=== PATIENT | female | born 1945 | race Caucasian/White ===

== ENCOUNTER 2017-03-22 12:53 | Outpatient (CLI) | payer MEDICARE, OTHER ==
--- NOTE | 2017-03-22 15:10 | RAD ---
TWO VIEW CHEST: History: Dyspnea. Comparison: 05-25-16 FINDINGS: Heart is mildly enlarged. Vascular markings upper normal. There are increased interstitial markings n oted today in the right midlung field when compared to the prior study. This is suspicious for an acu te inflammatory process which appears primarily interstitial. Recommend short term follow up. Lungs otherwise appear clear and unchanged. Degenerative spine changes are noted. IMPRESSION: 1. Evidence of new focal interstitial infiltrative changes in the right lung field when compared to t he study. POS: [facility]
== END 2017-03-22 12:54 | disposition home or self-care (01) ==
LOC: RAD 12:53
PROVIDERS: ATTEND Internal Medicine Critical Care Medicine
DX: R06.00 Dyspnea, unspecified (principal); R91.8 Other nonspecific abnormal finding of lung field
CPT/HCPCS: 71020

== ENCOUNTER 2017-03-30 12:15 | Outpatient (CLI) | payer MEDICARE, OTHER | END 2017-03-30 12:16 | disposition home or self-care (01) | LOC: BICMAMMO 12:15 | PROVIDERS: ATTEND Family Medicine | DX: Z12.31 Encounter for screening mammogram for malignant neoplasm of breast (principal) | CPT/HCPCS: 77063; G0202; 77067 ==

== ENCOUNTER 2017-04-30 10:40 | Outpatient (CLI) | payer MEDICARE, OTHER ==
--- NOTE | 2017-05-03 12:33 | RAD ---
MODIFIED BARIUM SWALLOW WITH SPEECH THERAPIST: 04/30/2017 HISTORY: A 71-year-old female with dysphagia, unspecified (R12.10); paralysis of vocal cords and larynx; and g astroesophageal reflux disease without esophagitis (K21.9). FINDINGS: There is ACDF hardware at C3-C4-C5. The jaws are edentulous. Laryngeal elevation, hyoid protraction , and epiglottic inversion are satisfactory. Some residue in the vallecula and, to a lesser degree, piriform sinuses, with partial clearing upon repeat swallows. Minimal penetration with thin liquids. No aspiration. The ACDF hardware does not significantly displace the hypopharynx, and does not bj ear to significantly contribute to dysphagia. See complete detailed report by speech therapist. IMPRESSION: Mild dysphagia, as described above. POS: [facility]
== END 2017-04-30 10:41 | disposition home or self-care (01) ==
PROVIDERS: ATTEND Otolaryngology Plastic Surgery within the Head & Neck
DX: I69.191 Dysphagia following nontraumatic intracerebral hemorrhage (principal); R13.10 Dysphagia, unspecified; J38.00 Paralysis of vocal cords and larynx, unspecified; K21.9 Gastro-esophageal reflux disease without esophagitis
CPT/HCPCS: 74220; G8996-GN-CJ; G8997-GN-CI

== ENCOUNTER 2017-05-04 13:05 | Outpatient (CLI) | payer MEDICARE, OTHER ==
--- NOTE | 2017-05-04 13:43 | RAD ---
TWO VIEWS CHEST: History: Dyspnea. Date: 05-04-17 Comparison: 03-22-17 FINDINGS/IMPRESSION: The lungs are well aerated. No evidence of active intrathoracic disease is seen. No evidence of effus ions, pneumonia, or pneumothorax seen. Areas of patchy airspace opacity noted on the previous exam on the right upper lobe appear to have re solved. POS: [facility]
== END 2017-05-04 13:06 | disposition home or self-care (01) ==
LOC: RAD 13:05
PROVIDERS: ATTEND Internal Medicine Critical Care Medicine
DX: R06.00 Dyspnea, unspecified (principal)
CPT/HCPCS: 71046

== ENCOUNTER 2017-05-21 15:49 | Outpatient (CLI) | payer MEDICARE, OTHER ==
--- NOTE | 2017-05-21 16:08 | RAD ---
PA AND LATERAL VIEWS CHEST: HISTORY: Pneumonia, cough, fever, flu-like symptoms. FINDINGS: Comparison is made with the exam of 05/04/17. The heart size is normal. The lungs are expanded without focal areas of consolidation, pneumothorax, or pleural effusions. There are degenerative changes in the spine. IMPRESSION: No acute process. POS: [facility]
== END 2017-05-21 15:50 | disposition home or self-care (01) ==
LOC: SCSRAD 15:49
PROVIDERS: ATTEND Family Medicine
DX: J18.9 Pneumonia, unspecified organism (principal)
CPT/HCPCS: 71046

== ENCOUNTER 2017-11-24 11:20 | Outpatient (CLI) | payer MEDICARE, OTHER | END 2017-11-24 11:21 | disposition home or self-care (01) | LOC: BICRAD 11:20 | DX: M54.2 Cervicalgia (principal); M47.892 Other spondylosis, cervical region; Z98.890 Other specified postprocedural states | CPT/HCPCS: 72050 ==

== ENCOUNTER 2018-03-31 11:13 | Outpatient (CLI) | payer MEDICARE, OTHER | END 2018-03-31 11:14 | disposition home or self-care (01) | LOC: BICMAMMO 11:13 | PROVIDERS: ATTEND Family Medicine | DX: Z12.31 Encounter for screening mammogram for malignant neoplasm of breast (principal) | CPT/HCPCS: 77063; 77067 ==

== ENCOUNTER 2018-10-21 13:27 | Outpatient (CLI) | payer MEDICARE, OTHER ==
--- NOTE | 2018-10-21 16:18 | ULT ---
ULTRASOUND WITH DOPPLER DUPLEX VENOUS LOWER EXTREMITY RIGHT: 10/21/18 HISTORY: 73-year-old female with edema of right lower extremity. TECHNIQUE: Color flow Doppler, spectral waveform analysis of pulsed Doppler, and alvarado-scale imaging with phi seamus and augmentation, were used to evaluate the right common femoral, femoral, popliteal, posterior tibial, and superficial femoral, veins; and the proximal portions of the profunda femoral and greater saphenous, veins. FINDINGS: There is normal compressibility, demonstration of blood flow by color Doppler and pulsed Doppler, and response to augmentation, in all interrogated veins. There is soft tissue edema in the distal portio n of the right leg. IMPRESSION: 1. No deep vein thrombosis in the right lower extremity. 2. Edema in the right distal leg. jn [] POS: [facility]
== END 2018-10-21 13:28 | disposition home or self-care (01) ==
LOC: ULT 13:27
PROVIDERS: ATTEND Family Medicine
DX: M79.89 Other specified soft tissue disorders (principal); R60.0 Localized edema
CPT/HCPCS: 36415; 80053

== ENCOUNTER 2019-04-24 10:27 | Outpatient (CLI) | payer MEDICARE, OTHER ==
--- NOTE | 2019-04-24 14:05 | MMO ---
Bilateral MAMMO Bilat Screen [facility]. CLINICAL HISTORY: Patient is 73 years old and is seen for screening. The patient has no family history of breast cancer. The patient has no personal history of cancer. The patient has a history of right Excisional Biopsy in 1988 - benign. VIEWS: The views performed were: bilateral craniocaudal with tomosynthesis and bilateral mediolateral oblique with tomosynthesis. FILMS COMPARED: The present examination has been compared to prior imaging studies performed at [facility] on 03/30/2017 and 03/31/2018, and at [facility] on 02/19/2015 and 03/11/2016. This study has been interpreted with the assistance of computer-aided detection. MAMMOGRAM FINDINGS: The breasts are almost entirely fat. There are no suspicious masses, suspicious calcifications, or new areas of architectural distortion. IMPRESSION: THERE IS NO MAMMOGRAPHIC EVIDENCE OF MALIGNANCY. A ROUTINE FOLLOW-UP MAMMOGRAM IN 1 YEAR IS RECOMMENDED. THE RESULTS OF THIS EXAM WERE SENT TO THE PATIENT. ACR BI-RADS Category 1 - Negative MAMMOGRAPHY NOTE: 1. A negative mammogram report should not delay a biopsy if a dominant of clinically suspicious mass is present. 2. Approximately 10% to 15% of breast cancers are not detected by mammography. 3. Adenosis and dense breasts may obscure an underlying neoplasm. Reported by: RAVEN CARDENAS MD Electonically Signed: [id number]
== END 2019-04-24 10:28 | disposition home or self-care (01) ==
LOC: BICMAMMO 10:27
PROVIDERS: ATTEND Family Medicine
DX: Z12.31 Encounter for screening mammogram for malignant neoplasm of breast (principal); Z91.89 Other specified personal risk factors, not elsewhere classified
CPT/HCPCS: 77063; 77067

== ENCOUNTER 2019-12-29 14:28 | Outpatient (CLI) | payer MEDICARE, OTHER ==
--- NOTE | 2019-12-29 14:51 | SJPRAD ---
PA AND LATERAL VIEWS OF CHEST HISTORY: Shortness of breath COMPARISON: 05/21/2017 FINDINGS: The heart size borderline. The aorta is tortuous. The lungs are expanded without lobar cons olidation, pneumothoraces, elizabeth pulmonary edema or pleural effusions. There are degenerative changes in the spine. IMPRESSION: No acute process
== END 2019-12-29 14:29 | disposition home or self-care (01) ==
LOC: SCSRAD 14:28
PROVIDERS: ATTEND Physician Assistant
DX: R06.02 Shortness of breath (principal)
CPT/HCPCS: 87635; U0003

== ENCOUNTER 2020-10-10 12:58 | Outpatient (CLI) | payer MEDICARE, OTHER | END 2020-10-10 12:59 | disposition home or self-care (01) | LOC: BICMAMMO 12:58 | PROVIDERS: ATTEND Family Medicine | DX: Z12.31 Encounter for screening mammogram for malignant neoplasm of breast (principal); M79.671 Pain in right foot | CPT/HCPCS: 77063; 77067 ==

== ENCOUNTER 2020-11-29 12:11 | Outpatient (CLI) | payer MEDICARE, OTHER ==
[2020-11-29 16:34] LABS: Bilirubin Negative (Negative); Blood, Urine Negative (Negative); Clarity Turbid (Clear); Glucose, Urine (Dipstick) Normal (Negative); Ketone, Urine Negative (Negative); Leukocyte 250 Leu/uL (Negative); Nitrite 2+ (Negative); Protein, Urine (Dipstick) Negative (Neg-Trace); RBC/HPF 0-3 HPF (0-3); Squamous Epithelial 0-3 HPF (0-3); Urobilinogen Normal mg/dL (Less than 2)
[2020-11-29 16:36] LABS: Bacteria/HPF 1+ HPF (None Seen)
== END 2020-11-29 12:12 | disposition home or self-care (01) ==
LOC: SCSRAD 12:11
PROVIDERS: ATTEND Family Medicine
DX: M54.6 Pain in thoracic spine (principal); R30.0 Dysuria; M47.814 Spondylosis without myelopathy or radiculopathy, thoracic region
CPT/HCPCS: 72072; 81001; 87077; 87086; 87186

== ENCOUNTER 2021-05-02 14:47 | Outpatient (CLI) | payer MEDICARE, OTHER | END 2021-05-02 14:48 | disposition home or self-care (01) | LOC: RAD 14:47 | PROVIDERS: ATTEND Family Medicine | DX: M25.531 Pain in right wrist (principal); S52.501A Unspecified fracture of the lower end of right radius, initial encounter for closed fracture; S52.601A Unspecified fracture of lower end of right ulna, initial encounter for closed fracture ==

== ENCOUNTER 2021-11-20 14:27 | Outpatient (CLI) | payer MEDICARE, OTHER ==
[~2021-11-20 14:27] MED LIST: Iopamidol 370 76% 100 ML VIAL ONE
== END 2021-11-20 14:28 | disposition home or self-care (01) ==
LOC: BICCT 14:27
PROVIDERS: ATTEND Internal Medicine Cardiovascular Disease
DX: D49.89 Neoplasm of unspecified behavior of other specified sites (principal); J43.2 Centrilobular emphysema; I26.99 Other pulmonary embolism without acute cor pulmonale; J98.4 Other disorders of lung; D17.4 Benign lipomatous neoplasm of intrathoracic organs
CPT/HCPCS: 71275; 82565; Q9967

== ENCOUNTER 2021-12-22 14:00 | Inpatient (IN) | payer MEDICARE, OTHER ==
[2021-12-22 15:35] LABS: Hemoglobin 12.1 g/dL (12.0-15.5); Mean Corpuscular Hemoglobin 32.1 pg (27.0-33.0); Mean Corpuscular Volume 100.3 fl (81.6-98.3); Platelet Count 255 10x3/uL (150-450); RBC Distribution Width 13.4 % (11.5-14.5); Red Blood Cell (RBC) Count 3.77 10x6/uL (3.90-5.03); White Blood Cell (WBC) Count 4.5 10x3/uL (3.5-10.5)
[2021-12-22 16:05] LABS: Anion Gap 13 mmol/L (10-20); BUN (Urea Nitrogen) 16 mg/dL (9.8-20.1); Calc. Creatinine Clearance 0 mL/min (70-130); Calcium 9.5 mg/dL (7.8-10.44); Carbon Dioxide 31 mmol/L (23-31); Chloride 104 mmol/L (98-107); Estimated GFR 68; Glucose 88 mg/dL (83-110); Sodium 143 mmol/L (136-145)
[2021-12-25] MEDS ORDERED: Heparin 5,000 UNITS/ML VIAL ONE (10:17)
[2021-12-25] MEDS ORDERED: Dexamethasone 4 mg/ml Vial ONE (10:17)
[2021-12-25] MEDS ORDERED: Bupivacaine/Epinephrine 0.25% 30 ML VIAL ONE (10:17)
[2021-12-25] MEDS ORDERED: Protamine Sulfate 50 MG/5 ML VIAL ONE (10:17)
[2021-12-25] MEDS ORDERED: Lidocaine 1% MPF 2 ML VIAL ONE ×2 (11:16→12:34)
[2021-12-25] MEDS ORDERED: Calcium Chloride 1 GM/10 ML Abboject SYRINGE ONE (11:31)
[2021-12-25] MEDS ORDERED: Thrombin 5000 UNITS/5 ML VIAL ONE (11:31)
[2021-12-25] MEDS ORDERED: levETIRAcetam 500 MG/5 ML VIAL ONE (11:31)
[2021-12-25] MEDS ORDERED: Levofloxacin 500 mg/D5W 100 ml Premix Bag ONE (11:32)
[2021-12-25] MEDS ORDERED: Midazolam HCl 2 mg/2 ml Vial ONE (11:39)
[2021-12-25] MEDS ORDERED: fentaNYL Citrate/PF 100 MCG/2 ML SYRINGE ONE ×3 (11:40→14:48)
[2021-12-25] MEDS ORDERED: SUGAMMADEX SODIUM 200 MG/2 ML VIAL ONE ×2 (11:40→14:01)
[2021-12-25] MEDS ORDERED: Rocuronium Bromide 10 MG/ML (10ML VIAL) ONE (12:34)
[2021-12-25] MEDS ORDERED: Ondansetron PF 4 MG/2 ML Vial ONE (12:34)
[2021-12-25] MEDS ORDERED: PROPOFOL 200 MG/20 ML VIAL ONE (12:34)
[2021-12-25] MEDS ORDERED: Fentanyl 100 MCG/2 ML VIAL SLOW IVP PRN ×2 (14:30)
[2021-12-25] MEDS ORDERED: Ondansetron PF 4 MG/2 ML Vial IVP PRN (14:30)
[2021-12-25] MEDS ORDERED: niCARdipine 25 MG in Sodium Chloride 0.9% 250 ML 250 ML IVPB PRN (14:30)
[2021-12-25] MEDS ORDERED: Promethazine HCl 25 MG/ML VIAL IM PRN (14:33)
[2021-12-25] MEDS ORDERED: HYDROmorphone 2 MG/ML VIAL SLOW IVP PRN (14:33)
[2021-12-25] MEDS ORDERED: Promethazine HCl 25 MG/ML VIAL IVPB PRN (14:33)
[2021-12-25] MEDS ORDERED: Ondansetron HCl/PF 4 MG/2 ML Vial IVP PRN (14:33)
[2021-12-25 14:38] VITALS: BMI 26.7
[2021-12-25] MEDS ORDERED: HYDROmorphone 0.5 MG/0.5 ML SYRINGE ONE ×4 (15:05→15:54)
[2021-12-25] MEDS ORDERED: Ketorolac Tromethamine 30 MG/ML VIAL ONE (15:23)
[2021-12-25] MEDS: Lactated Ringer's 1,000 ML IV SCH (16:55)
[2021-12-25] MEDS: Ketorolac Tromethamine 30 MG/ML VIAL IVP SCH ×2 (18:38→23:13)
[2021-12-25] MEDS: tiZANidine HCl 4 MG TAB PO SCH (20:41)
[2021-12-25] MEDS: busPIRone HCl 10 MG TAB PO SCH (20:41)
[2021-12-25] MEDS: Gabapentin 300 MG CAP PO SCH (20:42)
[2021-12-26 01:16] LABS: #Lymphocytes 0.6 thou/uL (1.20-3.40); #Monocytes 0.4 thou/uL (0.11-0.59); #Neutrophils 4.6 thou/uL (1.40-6.50); %Basophils 0.2 % (0.0-1.0); %Eosinophils 0.5 % (0.0-10.0); %Lymphocytes 11.3 % (21.0-51.0); %Monocytes 6.2 % (0.0-10.0); %Neutrophils 81.9 % (42.0-75.0); Hemoglobin 10.5 g/dL (12.0-16.0); Mean Corpuscular HGB CONC 32.6 g/dL (32.0-36.0); Mean Corpuscular Hemoglobin 33.6 pg (27.0-31.0); Mean Platelet Volume 9.5 fL (7.4-10.4); Platelet Count 192 thou/uL (130-400); RBC Distribution Width 12.2 % (11.5-14.5); Red Blood Cell (RBC) Count 3.12 mill/uL (4.20-5.40); White Blood Cell (WBC) Count 5.6 thou/uL (4.8-10.8)
[2021-12-26 01:41] LABS: Anion Gap 8 mmol/L (10-20); BUN (Urea Nitrogen) 15 mg/dL (9.8-20.1); Calc. Creatinine Clearance 99 mL/min (70-130); Calcium 8.2 mg/dL (7.8-10.44); Carbon Dioxide 28 mmol/L (23-31); Chloride 109 mmol/L (98-107); Estimated GFR 92; Glucose 116 mg/dL (83-110); Potassium 4.1 mmol/L (3.5-5.1); Sodium 141 mmol/L (136-145)
[2021-12-26] MEDS: Ketorolac Tromethamine 30 MG/ML VIAL IVP SCH ×3 (06:05→17:23)
[2021-12-26] MEDS: Lactated Ringer's 1,000 ML IV SCH (06:41)
[2021-12-26] MEDS: Gabapentin 300 MG CAP PO SCH ×2 (08:29→20:24)
[2021-12-26] MEDS: busPIRone HCl 10 MG TAB PO SCH ×2 (08:29→20:24)
[2021-12-26] MEDS: Venlafaxine HCl XR 150 MG CAP PO SCH (08:30)
[2021-12-26] MEDS: HYDROcodone/Acetaminophen 5/325 mg Tablet PO PRN ×2 (10:44→18:38)
[2021-12-26] MEDS: tiZANidine HCl 4 MG TAB PO SCH (20:23)
[2021-12-26] MEDS: Apixaban 2.5 MG TAB PO SCH (20:24)
[2021-12-27] MEDS: Ketorolac Tromethamine 30 MG/ML VIAL IVP SCH ×4 (00:36→18:38)
[2021-12-27] MEDS: busPIRone HCl 10 MG TAB PO SCH ×2 (09:40→20:49)
[2021-12-27] MEDS: Venlafaxine HCl XR 150 MG CAP PO SCH (09:40)
[2021-12-27] MEDS: Apixaban 2.5 MG TAB PO SCH ×2 (09:40→20:48)
[2021-12-27] MEDS: Gabapentin 300 MG CAP PO SCH ×2 (09:40→20:49)
[2021-12-27] MEDS: tiZANidine HCl 4 MG TAB PO SCH (20:50)
[2021-12-28] MEDS: Ketorolac Tromethamine 30 MG/ML VIAL IVP SCH ×2 (00:47→06:13)
[2021-12-28] MEDS: Gabapentin 300 MG CAP PO SCH ×2 (09:28→21:12)
[2021-12-28] MEDS: Venlafaxine HCl XR 150 MG CAP PO SCH (09:28)
[2021-12-28] MEDS: busPIRone HCl 10 MG TAB PO SCH ×2 (09:28→21:14)
[2021-12-28] MEDS: Apixaban 2.5 MG TAB PO SCH (09:28)
[2021-12-28 11:31] LABS: #Lymphocytes 0.7 thou/uL (1.20-3.40); #Monocytes 0.8 thou/uL (0.11-0.59); %Basophils 0.1 % (0.0-1.0); %Eosinophils 0.1 % (0.0-10.0); %Lymphocytes 3.7 % (21.0-51.0); %Monocytes 4.3 % (0.0-10.0); %Neutrophils 91.8 % (42.0-75.0); Hemoglobin 11.4 g/dL (12.0-16.0); Mean Corpuscular HGB CONC 32.4 g/dL (32.0-36.0); Mean Corpuscular Hemoglobin 33.6 pg (27.0-31.0); Mean Platelet Volume 10.2 fL (7.4-10.4); Platelet Count 228 thou/uL (130-400); RBC Distribution Width 12.3 % (11.5-14.5); Red Blood Cell (RBC) Count 3.39 mill/uL (4.20-5.40); White Blood Cell (WBC) Count 18.5 thou/uL (4.8-10.8)
[2021-12-28 12:02] LABS: Anion Gap 15 mmol/L (10-20); BUN (Urea Nitrogen) 23 mg/dL (9.8-20.1); Calc. Creatinine Clearance 66 mL/min (70-130); Calcium 8.9 mg/dL (7.8-10.44); Carbon Dioxide 23 mmol/L (23-31); Chloride 103 mmol/L (98-107); Estimated GFR 59; Glucose 137 mg/dL (83-110); Potassium 4.1 mmol/L (3.5-5.1); Sodium 137 mmol/L (136-145)
[2021-12-28] MEDS ORDERED: Apixaban 5 MG TAB PO SCH (21:00)
[2021-12-28] MEDS: tiZANidine HCl 4 MG TAB PO SCH (21:14)
[2021-12-29] MEDS: Lactated Ringer's 1,000 ML IV SCH ×2 (08:39→17:18)
[2021-12-29] MEDS: Gabapentin 300 MG CAP PO SCH ×2 (08:41→21:03)
[2021-12-29] MEDS: busPIRone HCl 10 MG TAB PO SCH ×2 (08:42→21:04)
[2021-12-29] MEDS: Apixaban 5 MG TAB PO SCH ×2 (08:42→21:05)
[2021-12-29] MEDS: Venlafaxine HCl XR 150 MG CAP PO SCH (09:03)
[2021-12-29] MEDS: HYDROcodone/Acetaminophen 5/325 mg Tablet PO PRN (14:59)
[2021-12-29] MEDS: tiZANidine HCl 4 MG TAB PO SCH (21:04)
[2021-12-30] MEDS: Lactated Ringer's 1,000 ML IV SCH ×2 (03:00→11:47)
[2021-12-30 05:07] LABS: #Eosinphils 0.2 thou/uL (0.0-0.7); #Monocytes 0.5 thou/uL (0.11-0.59); #Neutrophils 7.6 thou/uL (1.40-6.50); %Basophils 0.1 % (0.0-1.0); %Eosinophils 2.1 % (0.0-10.0); %Lymphocytes 11.1 % (21.0-51.0); %Monocytes 5.4 % (0.0-10.0); %Neutrophils 81.3 % (42.0-75.0); Hemoglobin 9.3 g/dL (12.0-16.0); Mean Corpuscular HGB CONC 32.8 g/dL (32.0-36.0); Mean Corpuscular Hemoglobin 33.8 pg (27.0-31.0); Mean Platelet Volume 10.2 fL (7.4-10.4); Platelet Count 175 thou/uL (130-400); RBC Distribution Width 12.1 % (11.5-14.5); Red Blood Cell (RBC) Count 2.75 mill/uL (4.20-5.40); White Blood Cell (WBC) Count 9.3 thou/uL (4.8-10.8)
[2021-12-30 05:22] LABS: Anion Gap 14 mmol/L (10-20); BUN (Urea Nitrogen) 22 mg/dL (9.8-20.1); Calc. Creatinine Clearance 80 mL/min (70-130); Carbon Dioxide 25 mmol/L (23-31); Chloride 101 mmol/L (98-107); Estimated GFR 73; Glucose 120 mg/dL (83-110); Potassium 4.4 mmol/L (3.5-5.1); Sodium 136 mmol/L (136-145)
[2021-12-30] MEDS: Gabapentin 300 MG CAP PO SCH ×2 (09:04→19:57)
[2021-12-30] MEDS: Venlafaxine HCl XR 150 MG CAP PO SCH (09:04)
[2021-12-30] MEDS: busPIRone HCl 10 MG TAB PO SCH ×2 (09:04→19:58)
[2021-12-30] MEDS: Apixaban 5 MG TAB PO SCH ×2 (09:04→19:58)
[2021-12-30] MEDS: HYDROcodone/Acetaminophen 5/325 mg Tablet PO PRN ×2 (19:45→23:05)
[2021-12-30] MEDS: tiZANidine HCl 4 MG TAB PO SCH (19:57)
[2021-12-31 07:40] VITALS: BP 102/69; TEMP 97.8
[2021-12-31] MEDS: busPIRone HCl 10 MG TAB PO SCH (10:04)
[2021-12-31] MEDS: Venlafaxine HCl XR 150 MG CAP PO SCH (10:04)
[2021-12-31] MEDS: Gabapentin 300 MG CAP PO SCH (10:04)
[2021-12-31] MEDS: Apixaban 5 MG TAB PO SCH (10:04)
== END 2021-12-31 11:00 | disposition home or self-care (01) | DRG 165 ==
LOC: SURG A 12-25 09:46 → CCU 12-25 16:38 → 2NO 12-26 18:56
PROVIDERS: ADMIT Thoracic Surgery (Cardiothoracic Vascular Surgery); ATTEND Thoracic Surgery (Cardiothoracic Vascular Surgery)
PROC: 02BN0ZZ Excision of Pericardium, Open Approach (ICD-10-PCS; principal; 2021-12-25)
DX: D17.4 Benign lipomatous neoplasm of intrathoracic organs (principal); Z20.822 Contact with and (suspected) exposure to COVID-19; I10 Essential (primary) hypertension; E78.5 Hyperlipidemia, unspecified; F32.A Depression, unspecified; K21.9 Gastro-esophageal reflux disease without esophagitis; I48.0 Paroxysmal atrial fibrillation; J44.9 Chronic obstructive pulmonary disease, unspecified; I95.9 Hypotension, unspecified; Z86.711 Personal history of pulmonary embolism; Z88.8 Allergy status to other drugs, medicaments and biological substances; Z88.0 Allergy status to penicillin; Z79.01 Long term (current) use of anticoagulants; Z79.899 Other long term (current) drug therapy; Z79.890 Hormone replacement therapy; Z86.718 Personal history of other venous thrombosis and embolism; Z90.711 Acquired absence of uterus with remaining cervical stump; Z87.891 Personal history of nicotine dependence
CPT/HCPCS: 36415; 71045; 80048; 85025; 85027; 86850; 86900; 86901; 87811; 88304; 88307; 93005; 93010; 93306; 94640; J1100; J1170; J1642; J1644; J1885; J1953; J1956; J2250; J2405; J2704; J2720; J3010; J3370; J7050; J7120; J7620; P9045

== ENCOUNTER 2021-12-22 14:13 | Outpatient (CLI) | payer MEDICARE, OTHER | END 2021-12-22 14:14 | disposition home or self-care (01) | LOC: LABBT 14:13 | PROVIDERS: ATTEND Thoracic Surgery (Cardiothoracic Vascular Surgery) | DX: Z01.810 Encounter for preprocedural cardiovascular examination (principal); C76.1 Malignant neoplasm of thorax; R94.31 Abnormal electrocardiogram [ECG] [EKG] | CPT/HCPCS: 80048; 85027; 86850; 86900; 86901; 87811; 93005; 93010 ==

== ENCOUNTER 2022-05-25 13:37 | Outpatient (CLI) | payer MEDICARE, OTHER | END 2022-05-25 13:38 | disposition home or self-care (01) | LOC: BICMAMMO 13:37 | PROVIDERS: ATTEND Family Medicine | DX: Z12.31 Encounter for screening mammogram for malignant neoplasm of breast (principal); Z91.89 Other specified personal risk factors, not elsewhere classified | CPT/HCPCS: 77063; 77067 ==

== ENCOUNTER 2022-05-25 14:48 | Outpatient (CLI) | payer MEDICARE, OTHER | END 2022-05-25 14:49 | disposition home or self-care (01) | LOC: BICRAD 14:48 | PROVIDERS: ATTEND Family Medicine | DX: M17.11 Unilateral primary osteoarthritis, right knee (principal) ==

== ENCOUNTER 2022-07-03 21:23 | Emergency (ER) | payer OTHER, MEDICARE ==
[2022-07-03] MEDS ORDERED: Boostrix 0.5 ML (Tdap) VIAL (>/=7 yrs of age) ONE (22:09)
== END 2022-07-04 00:28 | disposition home or self-care (01) ==
LOC: ERS 21:23
DX: S01.111A Laceration without foreign body of right eyelid and periocular area, initial encounter (principal); W01.0XXA Fall on same level from slipping, tripping and stumbling without subsequent striking against object, initial encounter; Z87.891 Personal history of nicotine dependence; Z79.01 Long term (current) use of anticoagulants; Z23 Encounter for immunization
CPT/HCPCS: 12011; 70450; 72125; 90715

== ENCOUNTER 2022-10-21 13:01 | Outpatient (CLI) | payer MEDICARE, OTHER | END 2022-10-21 13:02 | disposition home or self-care (01) | LOC: RAD 13:01 | PROVIDERS: ATTEND Internal Medicine Critical Care Medicine | DX: R06.00 Dyspnea, unspecified (principal); J44.9 Chronic obstructive pulmonary disease, unspecified; I27.20 Pulmonary hypertension, unspecified; I51.7 Cardiomegaly | CPT/HCPCS: 71046 ==

== ENCOUNTER 2023-02-15 17:00 | Outpatient (CLI) | payer MEDICARE, OTHER | END 2023-02-15 17:01 | disposition home or self-care (01) | LOC: SLEEPLAB 17:00 | PROVIDERS: ATTEND Physician Assistant | DX: G47.33 Obstructive sleep apnea (adult) (pediatric) (principal); K21.9 Gastro-esophageal reflux disease without esophagitis; I10 Essential (primary) hypertension; R53.83 Other fatigue | CPT/HCPCS: 95811 ==

== ENCOUNTER 2023-04-29 13:39 | Outpatient (CLI) | payer MEDICARE, OTHER | END 2023-04-29 13:40 | disposition home or self-care (01) | LOC: BICULT 13:39 | PROVIDERS: ATTEND Family Medicine | DX: L05.91 Pilonidal cyst without abscess (principal) | CPT/HCPCS: 76999 ==

== ENCOUNTER 2023-05-25 06:22 | Day surgery (SDC) | payer MEDICARE, OTHER ==
[2023-05-20 13:12] VITALS: BMI 26.6
[~2023-05-25 06:22] MED LIST changes: +EPINEPHrine 0.3 MG in Ophthalmic Irrigation Solution 500 ML IRR SCH; -Iopamidol 370 76% 100 ML VIAL ONE
[2023-05-25] MEDS ORDERED: Cyclopentolate W/ Phenylephrin 40 DROP/2 ML BOT ONE (06:40)
[2023-05-25] MEDS ORDERED: PROPOFOL 20 ML ONE (07:17)
[2023-05-25] MEDS ORDERED: fentaNYL 50 mcg/mL 1 mL Vial ONE (07:18)
[2023-05-25] MEDS ORDERED: Midazolam HCl 2 mg/2 ml Vial ONE (07:18)
[2023-05-25] MEDS ORDERED: Lidocaine 4% PF 5 ML AMP ONE (07:59)
[2023-05-25] MEDS ORDERED: Indocyanine Green 25 MG/10 ML VIAL ONE (07:59)
[2023-05-25] MEDS ORDERED: Triamcinolone 40 MG/ML VIAL ONE (07:59)
[2023-05-25] MEDS ORDERED: Bupivacaine 0.75% 10 ML VIAL ONE (07:59)
== END 2023-05-25 09:09 | disposition home or self-care (01) ==
LOC: SDC 06:22
PROVIDERS: ATTEND Ophthalmology Retina Specialist
PROC: 08T53ZZ Resection of Left Vitreous, Percutaneous Approach (ICD-10-PCS; principal; 2023-05-25)
PROC: 08NF3ZZ Release Left Retina, Percutaneous Approach (ICD-10-PCS; 2023-05-25)
DX: H35.372 Puckering of macula, left eye (principal); Z88.0 Allergy status to penicillin; Z88.8 Allergy status to other drugs, medicaments and biological substances
CPT/HCPCS: 67042; J3010; J0171; J2250; J2704; J3301; J3490

== ENCOUNTER 2023-07-08 13:08 | Outpatient (CLI) | payer MEDICARE, OTHER | END 2023-07-08 13:09 | disposition home or self-care (01) | LOC: BICMAMMO 13:08 | PROVIDERS: ATTEND Family Medicine | DX: Z12.31 Encounter for screening mammogram for malignant neoplasm of breast (principal); M53.3 Sacrococcygeal disorders, not elsewhere classified; Z91.89 Other specified personal risk factors, not elsewhere classified | CPT/HCPCS: 72190; 72220; 77063; 77067 ==